=== PATIENT | male | born 1955 | race Caucasian/White ===

== ENCOUNTER 2023-09-19 12:38 | Day surgery (SDC) | payer MEDICARE ==
[~2023-09-19] VITALS: Ht 190.5 cm; Wt 94.6 kg
[2023-09-19] MEDS: LIDOCAINE 3.5 % 1ML OPHTH TOPICAL GEL OU ONE (13:50)
[2023-09-19] MEDS ORDERED: fentaNYL 100 MCG/2 ML INJECTION As Ordered ONE (14:12)
[2023-09-19] MEDS ORDERED: MIDAZOLAM INJ 2MG/2ML VIAL As Ordered ONE (14:12)
[2023-09-19] MEDS: POVIDONE-IODINE 5% OPHTH PREP SOL 30ML As Ordered ONE (14:40)
[2023-09-19] MEDS: LIDOCAINE 2% W/EPINEPHRINE 20ML VIAL **PRES FREE As Ordered ONE (14:40)
[2023-09-19] MEDS: TOBRADEX OPHTH OINT 3.5 GM As Ordered ONE (14:52)
[2023-09-19 14:57] VITALS: BP 136/80; TEMP 97.4; O2SAT 98
== END 2023-09-19 15:17 | disposition home or self-care (01) ==
LOC: M SDC 12:38
PROVIDERS: ATTEND Ophthalmology
DX: H02.002 Unspecified entropion of right lower eyelid (principal)
CPT/HCPCS: 67924; J2250; J3010